=== PATIENT | female | born 1990 | race Caucasian/White ===

== ENCOUNTER 2021-11-09 07:51 | Inpatient (IN) ==
[2021-11-09] MEDS ORDERED: LACTATED RINGER'S 1,000 ML IV PRN (07:54)
[2021-11-09] MEDS ORDERED: OXYTOCIN 30 UNITS/500 ML BAG IV PRN ×3 (07:54→17:09)
--- NOTE | 2021-11-09 07:57 | History & Physical Report ---
Date of Service November 09, 2021 Assessment & Plan (1) IUGR (intrauterine growth restriction) affecting care of mother: (2) Velamentous insertion of umbilical cord: (3) 38 weeks gestation of : (4) Marijuana use: (5) Group beta Strep positive: (6) Need for MMR vaccine: Plan: Admit, iv, labs. Will plan finn ripening balloon, already placed after informed consent. Plan pitocin induction. Patient and spouse agreeable. Will need to send urine toxicology screen. FHTs categ 1. Arom when able. Pcn for gbs pos. Admission and Anticipated Discharge Date Admission Date: November 09, 2021 History of Present Illness Chief Complaint: planned induction, iugr Primary Care Provider: Declan Spivey MD 30yo at 38wks cecilia presents to L&D for planned induction for IUGR, EFW 3%, AC 2%. She denies rom, vb. +FM. No ctx. PNC c/b 1. smoker, apparently has medical MJ card and used last pm. 2. Velamentous Cord Insertion 3. IUGR, efw <3% 4. GBS pos All Active Problems Group beta Strep positive Tobacco smoking affecting Encounter for anatomic survey Cellulitis of left breast Velamentous insertion of umbilical cord IUGR (intrauterine growth restriction) affecting care of mother 38 weeks gestation of Marijuana use Allergies Allergy/AdvReac Type Severity Reaction Status Date / Time No Known Allergies Allergy Verified 11/08/21 14:10 Home Medications Medication Instructions Recorded Confirmed Type See Rx Instructions .ROUTE 11/09/21 11/09/21 History .COMPLEX MDD 1 cap Patient History Medical History (Updated 11/09/21 @ 08:32 by Tess Drummond MD, FACOG) Abscess Nipple abscess during , treated with antibiotics History of chicken pox Surgical History S/P cholecystectomy S/P tonsillectomy Status post open reduction with internal fixation (ORIF) of fracture of ankle Family History Grandmother (Maternal) Stomach cancer Denies family history of Ovarian cancer Breast cancer Colorectal cancer Social History Smoking Status: Current every day smoker Tobacco Type: Cigarettes Cigarettes Per Day: 5; marital status: Single marital status details: tete Tellez (24) [phone] Current Living Situation: Family Current Living Situation Comment: lives with daughter, janessa current occupational status: unemployed Review of Systems as per Subjective / HPI Physical Exam Constitutional: WD/WN, vitals as above Respiratory: normal respiratory effort, lungs clear to auscultation Cardiovascular: Rate/Rhythm: regular rate and regular rhythm Gastrointestinal (Abdomen): soft gravid nt, efw 5-6# Musculoskeletal: no edema nontender calves Neurologic: grossly normal Psychiatric: A+Ox3, euthymic affect Genitourinary: OB Exam Monitor Tracing: + external FHT monitor used, + external uterine monitor used (irregular), + category I and + normal FHT variability PROCEDURE: sse cx visualized, grasped on ant lip with ring forcep, finn through os and balloon inflated with 40cc sterile water. Spec removed, finn taped to leg. pt bernardo well. Coding Level of Care Code None Diagnoses IUGR (intrauterine growth restriction) affecting care of mother O36.5990 Velamentous insertion of umbilical cord O43.129 38 weeks gestation of Z3A.38 Marijuana use F12.90 Group beta Strep positive B95.1 Need for MMR vaccine Z23
[2021-11-09 08:14] LABS: Hematocrit (blood only) 38.8 % (37-47); Hemoglobin 13.1 g/dL (12.0-16.0); Mean Corpuscular Hemoglobin 30.3 pg (25-34); Mean Corpuscular Hgb Conc 33.8 g/dL (32-36); Mean Corpuscular Volume 89.6 fL (80-100); Mean Platelet Volume 11.3 fL (7.4-10.4); Platelet Count 214 K/uL (130-400); RDW Coefficient of Variation 14.1 % (11.5-14.5); RDW Standard Deviation 46.1 fL (36.4-46.3); Red Blood Count 4.33 M/uL (4.2-5.4); White Blood Count 15.16 K/uL (4.8-10.8)
[2021-11-09] MEDS ORDERED: PENICILLIN G POTASSIUM 6 MU in DEXTROSE 5% 250 ML IV STA (08:15)
[2021-11-09 10:07] LABS: Amphetamines+Metham, Urine Neg (Neg); Barbiturates, Urine Neg (Neg); Benzodiazepine, Urine Neg (Neg); Cocaine, Urine Neg (Neg); MDMA (Ecstacy), Urine Neg (Neg); Methadone, Urine Neg (Neg); Opiate, Urine Neg (Neg); Phencyclidine, Urine Neg (Neg)
[2021-11-09] MEDS ORDERED: PENICILLIN G POTASSIUM 3 MU in DEXTROSE 5% 100 ML IV PRN (10:54)
--- NOTE | 2021-11-09 12:14 | Labor Progress Brief Note ---
Date of Service November 09, 2021 Subjective Discussed patient with RN and reviewed FHT strip, no exam at this time. Patient is tolerating contractions and does not plan to use anesthesia during her labor process. Odell reportedly fell out late this morning, so cervix is presumably at least 3- 4cm dilated. Second dose of GBS Abx due at 1330 today, after which a repeat exam would be logical so that AROM can be performed if agreed upon. FHT Cat 1 Plan: continue with IOL by titrating pitocin, and next exam/possible AROM after 2nd dose ABX at 1330. Dr. Drummond aware and agrees with this POC. Assessment & Plan Admission and Anticipated Discharge Date Admission Date: November 09, 2021 Results & Data ([facility]) Vital Signs (Past 12 Hours) Vital Signs Temp Pulse Resp BP 11/09/21 11:43 84 20 121/81 11/09/21 10:48 97.7 F 88 18 137/75 11/09/21 09:55 82 133/81 11/09/21 09:18 91 H 117/77 11/09/21 08:45 98 H 125/78 11/09/21 08:21 97.7 F 98 H 18 125/78 Coding Level of Care Code None
[2021-11-09] MEDS ORDERED: ONDANSETRON INJ 2 MG/ML 2 ML VIAL ONE (15:51)
[2021-11-09] MEDS ORDERED: ONDANSETRON INJ 2 MG/ML 2 ML VIAL IV STA (15:59)
--- NOTE | 2021-11-09 17:03 | Delivery Summary ---
Vaginal Delivery Summary Date of Service November 09, 2021 Vaginal Delivery Summary The patient dilated to complete and pushed to deliver a viable female Apgars 8 and 9 via over intact perineum. Mouth and nose bulb suctioned at perineum. Loose nuchal x 1 delivered through. Shoulders and body delivered with ease. Infant was vigorous and crying at . Cord clamped at 30 seconds of life and infant to maternal abdomen where the cord was then doubly clamped and cut. Placenta delivered partially through cervix into vagina spontaneously however required partial manual removal at JORGE. Uterus swept x 1 with no retained POCs. Hemostasis achieved with dilute pitocin and uterine massage. Cervix and sulci intact. EBL 300 cc. Mother and baby stable recovery. Small vaginal and right periurethral excoriations not bleeding and not repaired.
[2021-11-09] MEDS ORDERED: oxyCODONE/ACETAMINOPHEN 5mg/325mg TAB PO PRN (17:09)
[2021-11-09] MEDS ORDERED: BENZOCAINE 20% AER SPR 82.5 GM CAN EXT PRN (17:09)
[2021-11-09] MEDS ORDERED: HYDROCORTISONE ACETATE 25 MG SUPP PR PRN (17:09)
[2021-11-09] MEDS ORDERED: ACETAMINOPHEN 325 MG TAB PO PRN (17:09)
[2021-11-09] MEDS ORDERED: SUPERCREAM 0.870% 15 GM JAR EXT PRN (17:09)
[2021-11-09] MEDS ORDERED: IBUPROFEN 600 MG TAB PO PRN (17:09)
[2021-11-09] MEDS ORDERED: OXYTOCIN 20 UNITS in LACTATED RINGER'S 1,000 ML IV SCH (17:09)
[2021-11-09] MEDS: DOCUSATE SODIUM 100 MG CAP PO SCH (23:50)
[2021-11-10] MEDS ORDERED: ONDANSETRON 4 MG OD TAB PO STA (00:53)
--- NOTE | 2021-11-10 06:19 | Obstetrical Progress Note ---
Date of Service <Rex Yeager DO - Last Filed: 11/10/21 08:38> November 10, 2021 Assessment & Plan <Rex Yeager DO - Last Filed: 11/10/21 08:38> (1) Encounter for care and examination after delivery: 30 yo post day 1 from vaginal delivery, doing well. -Continue routine post care. -vital signs reviewed and WNL. (Tmax 37.0) -Blood type A+, GBS Positive, Rubella Non-immune - will need MMR vaccine. -Encourage ambulation, monitor and control pain with Motrin, tylenol PRN, resume regular diet, monitor lochia. -encourage breast feeding. -Discussed discharge with patient. Patient would like to go home today if possible. Went over discharge instructions. <Tess Drummond MD, FACOG - Last Filed: 11/10/21 08:47> (1) Encounter for care and examination after delivery: Subjective <Rex Yeager DO - Last Filed: 11/10/21 08:38> Ambulation: ambulating normally Voiding: no voiding problems Passing Gas:: Yes Diet Tolerance:: regular diet Lochia:: Small Feeding Type:: breast feeding Current Pain Level(1-10): 0 Review of Systems Denies fever, chills, sweats Denies shortness of breath, difficulty breathing, chest pain, palpitations, chest pressure. Denies breast pain. Denies dysuria. Denies headache or changes in vision Physical Exam <Rex Yeager DO - Last Filed: 11/10/21 08:38> General: Alert, oriented. No acute distress. Cardiac: Regular rate and rhythm, no murmurs/rubs/gallops. Respiratory: Clear to auscultation bilaterally a/p, no wheezes/rales/rhonchi. No increased work of breathing. Symmetrical chest rise. No respiratory distress. Abdomen: Soft, nontender, nondistended. Bowel sounds present. Uterus: Uterine fundus firm, palpable 2 cm below umbilicus. Lower Extremities: No lower extremity edema or swelling. No deep calf pain. Aleksandra's negative bilaterally Results & Data ([facility]) <Rex Yeager - Last Filed: 11/10/21 08:38> Vital Signs (Past 12 Hours) Vital Signs Temp Pulse Pulse Resp BP BP Pulse Ox 11/10/21 03:45 37.0 C 75 18 116/74 98 11/09/21 23:40 36.9 C 65 18 128/81 99 11/09/21 20:40 36.8 C 70 18 133/79 99 11/09/21 19:21 105 H 130/76 11/09/21 19:20 36.6 C 20 11/09/21 18:50 18 11/09/21 18:46 75 144/63 H 11/09/21 18:31 59 L 162/80 H 11/09/21 18:20 20 <Tess Drummond MD, FACOG - Last Filed: 11/10/21 08:47> Co-Signing Physician Notes Resident Physician Supervision Note: I was present with Dr. Yeager during the history and exam. I discussed the case with the resident and agree with the findings and plan as documented in the note. Any exceptions or clarifications are listed here: doing well. will dc later today. breast, needs mmr. f/u 6wk pp check. Documented By: Tess Drummond MD, FACOG Resident Activity Tracking <Rex Yeager DO - Last Filed: 11/10/21 08:38> Resident Involvement: Resident Care Provided Care Provided: OB Delivery
[2021-11-10] MEDS ORDERED: PRENATAL VITAMIN 1 TAB PO SCH (08:00)
[2021-11-10] MEDS ORDERED: DIPHTHERIA/TETANUS/PERTUSSIS 0.5 ML SYR/VIAL IM ONE (09:00)
[2021-11-10] MEDS: DOCUSATE SODIUM 100 MG CAP PO SCH (09:50)
[2021-11-11 08:46] LABS: Marijuana Quant, GCMS Urine 76 ng/mL (<5)
== END 2021-11-10 19:34 | disposition home or self-care (01) | DRG 806 ==
LOC: 4S1 07:51 → 4S2 19:30
DX: O99.324 Drug use complicating childbirth; F12.90 Cannabis use, unspecified, uncomplicated; F17.210 Nicotine dependence, cigarettes, uncomplicated; O99.824 Streptococcus B carrier state complicating childbirth; O99.334 Smoking (tobacco) complicating childbirth; Z3A.38 38 weeks gestation of pregnancy; O36.5930 Maternal care for other known or suspected poor fetal growth, third trimester, not applicable or unspecified; O43.123 Velamentous insertion of umbilical cord, third trimester; Z37.0 Single live birth